=== PATIENT | male | born 1980 | race African-American/Black ===

== ENCOUNTER 2017-03-13 16:43 | Emergency (ER) | payer MEDICAID ==
[~2017-03-13] VITALS: Ht 180.3 cm; Wt 88.5 kg
--- NOTE | 2017-03-13 17:45 | NUR ---
[place] son at the [facility] for [facility].
[2017-03-13 17:58] VITALS: BP 114/87
--- NOTE | 2017-03-13 17:58 | NUR ---
Patient discharged to home in stable conditon. Written and verbal after care instructions given. Patient verbalizes understanding of instructions.
== END 2017-03-13 18:02 | disposition home or self-care (01) ==
LOC: ER 16:45
DX: R50.9 Fever, unspecified (principal); R05 Cough
CPT/HCPCS: A4663